=== PATIENT | female | born 1955 | race Caucasian/White ===

== ENCOUNTER 2016-09-03 01:25 | Emergency (ER) | payer OTHER ==
[~2016-09-03] VITALS: Ht 157.5 cm; Wt 40.8 kg
--- NOTE | 2016-09-03 01:35 | NUR ---
HOME MEDS PT DENIES ANY HOME MEDS ON A DAILY BASIS, PT'S SISTER REPORTS PT NEEDS HER ESOPHAGUS DILATED.
[2016-09-03] MEDS ORDERED: GLUCAGEN IV STA (01:36)
[2016-09-03] MEDS ORDERED: NS 1000ML 1,000 ML ONE (01:38)
[2016-09-03] MEDS ORDERED: GLUCAGEN ONE (01:39)
[2016-09-03] MEDS ORDERED: TORADOL ONE (01:40)
--- NOTE | 2016-09-03 01:50 | NUR ---
EMESIS PIECE OF MEAT VISUALIZED IN EMESIS WITH FLUID. PT REPORTS FEELING BETTER, DR GRULLON WITH PT DISCUSSING PLAN OF CARE.
--- NOTE | 2016-09-03 01:54 | ER.PDOC ---
General Chief Complaint: General Complaint Stated Complaint: CHOKING ON PIECE OF MEAT Time seen by MD: 01:38 Source: patient, family Exam Limitations: no limitations History of Present Illness Initial Comments Pt ate a piece of roast beef at around midnight and felt that she had chocked with pain on terminal esophagus. Unable to eat or drink Timing/Duration: 1 hour Severity/Quality: severe Abdominal Pain Onset Location: Epigastric Associated Symptoms (vomiting): mild vomiting Allergies: Coded Allergies: No Known Allergies (Unverified , 09/03/16) Vital Signs First Vital Signs Date Time Temp Pulse Resp B/P Pulse Ox O2 Delivery O2 Flow Rate FiO2 09/03/16 01:26 99 16 97 09/03/16 01:30 161/110 Last Vital Signs Date Time Temp Pulse Resp B/P Pulse Ox O2 Delivery O2 Flow Rate FiO2 09/03/16 01:47 85 16 169/93 99 Past Medical History Medical History: no pertinent history Surgical History: no surgical history Social History Smoking: non-smoker Alcohol Use: none Drug Use: none Constitutional: see HPI EENTM: see HPI Respiratory: see HPI Cardiovascular: see HPI Gastrointestinal: see HPI Genitourinary: see HPI Musculoskeletal: see HPI Skin: see HPI Psychiatric/Neurological: see HPI Endocrine: see HPI Hematologic/Lymphatic: see HPI Physical Exam General Appearance: No Apparent Distress, WD/WN HEENT: PERRL/EOMI, Normal ENT Inspection, TMs Normal, Pharynx Normal Neck: Non-Tender, Full Range of Motion, Supple, Normal Inspection Respiratory: chest non-tender, lungs clear, normal breath sounds, no respiratory distress, no accessory muscle use Cardiovascular: Normal Peripheral Pulses, Regular Rate, Rhythm, No Edema, No Gallop, No JVD, No Murmur Gastrointestinal: Normal Bowel Sounds, Soft, Tenderness (epigastrium) Back: Normal Inspection, No CVA Tenderness, No Vertebral Tenderness Extremities: Normal Range of Motion, Non-Tender, Normal Inspection, No Pedal Edema, No Calf Tenderness, Normal Capillary Refill, Pelvis Stable Neurologic/Psychiatric: vinegar maker II-XII NML as Tested, No Motor/Sensory Deficits, Alert, Normal Mood/Affect, Oriented x 3 Skin: Normal Color, Warm/Dry Results/Orders Results/Orders Administered Medications Medications (Trade) Dose Ordered Sig/Lissette Route PRN Reason Start Time Stop Time Status Last Admin Dose Admin Glucagon 1 mg 1 mg STAT STAT IV 09/03/16 01:36 09/03/16 01:37 DC 09/03/16 01:43 Sodium Chloride (NS 1000ml) 1,000 ml @ 1,000 mls/hr OT IV 09/03/16 02:00 10/03/16 01:59 09/03/16 01:43 Progress Progress Pt given glucagon and shortly after she was able to vomit the obstructive piece of meat, immediate improvement Departure Time of Disposition: 01:53 Disposition: 01 HOME, SELF-CARE Impression: Primary Impression: Esophageal obstruction due to food impaction Condition: Stable Patient Instructions: Esophagitis Referrals: PCP,UNKNOWN (PCP) PRIMARY CARE PROVIDER DARIA GRULLON MD Sep 03, 2016 01:54
[2016-09-03] MEDS ORDERED: NS 1000ML 1,000 ML IV SCH (02:00)
--- NOTE | 2016-09-03 02:03 | NUR ---
DISCHARGE PT STATES SHE IS FEELING BETTER AND IS READY TO GO HOME. PT GIVEN A DRINK OF WATER. PT ABLE TO DRINK THE WATER WITHOUT DIFFICULTY. DISCHARGE INSTRUCTIONS DISCUSSED. PT AND HER SISTER VERBALIZED UNDERSTANDING. ENCOURAGED TO RETURN FOR ANY CONCERNS. IV DC'D TIP INTACT.
== END 2016-09-03 02:03 | disposition home or self-care (01) ==
LOC: ER 01:25
DX: K22.2 Esophageal obstruction (principal); R10.13 Epigastric pain
CPT/HCPCS: 96374; 99284; J1610; J1885; J7030; 99285